=== PATIENT | male | born 1960 | race African-American/Black ===

== ENCOUNTER 2025-03-20 10:44 | Emergency (ER) | payer MEDICAID ==
[~2025-03-20] VITALS: Ht 182.9 cm; Wt 151.0 kg
--- NOTE | 2025-03-20 11:52 | DVH ---
Clinical History: R/O DVT Comparison: None Technique: Duplex Doppler evaluation of the deep venous system of the left lower extremity from the common femo ral vein to the popliteal vein including color Doppler and spectral/pulsed waveform analysis was perf ormed. Findings: The common femoral vein demonstrates appropriate compressibility and waveform variability . There is compressibility/patency of the great saphenous vein at the proximal thigh . The femoral vein demonstrates appropriate compressibility and waveform variability . The deep femoral vein demonstrates appropriate compressibility and waveform variability . The popliteal vein demonstrates appropriate compressibility and waveform variability . There is normal compressibility at the tibioperoneal trunk. Impression: No left deep venous thrombosis. If clinical concern/symptoms persist or worsen, short-interval follow-up study is suggested.
--- NOTE | 2025-03-20 12:09 | DVH ---
CLINICAL INDICATION: PAIN TO LEFT HIP LEFT LEG TECHNIQUE: 1 radiographic views of the pelvis and 2 views of the left hip were obtained. Comparison: None FINDINGS/IMPRESSION: There is no evidence of acute fracture or dislocation. The visualized joint space is well maintained. The alignment is anatomical. There is no radiopaque foreign body.
[2025-03-20 12:42] VITALS: BP 171/98; PULSE 89; RESP 20; TEMP 98.7; O2SAT 96
--- NOTE | 2025-03-20 13:10 | ED.PDOC ---
Musculoskeletal HPI Comments 64-year-old male w/ hx of HTN, ran out of his HCTZ three days ago presents with a chief complaint of left lower extremity swelling. Reports his primary care doctor referred him to the emergency department for an emergency ultrasound rule out DVT. No other complaint of concern. Denies CP/SOB. Chief Complaint: Lower Extremity Time Seen by MD: 11:22 Primary Care Provider: DOMENICA Reviewed Notes: Nurses Notes, Medications, Allergies Allergies: Coded Allergies: NO KNOWN ALLERGIES (Unverified , 10/19/15) Information Source: Patient Mode of Arrival: Ambulatory Past Medical History PAST MEDICAL HISTORY: Denies Surgical History: Denies all surgeries Family History Family History: Unknown Social History Smoker: Non-Smoker Lives In: Home All Other Systems: Reviewed and Negative (per hpi) Physical Exam General Appearance: No Apparent Distress, Normal HEENT: Normal ENT Inspection, Pharynx Normal, TMs Normal Neck: Full Range of Motion, Non-Tender, Normal, Normal Inspection Respiratory: Chest Non-Tender, Lungs Clear, No Accessory Muscle Use, No R espiratory Distress, Normal Breath Sounds Cardiovascular: No Murmur, No Gallop, Regular Rate/Rhythm Breast Exam: Deferred Gastrointestinal: No Organomegaly, Non Tender, No Pulsatile Mass, Normal Bowel Sounds, Soft Genitalia: Deferred Pelvic: Deferred Rectal: Deferred Extremities: No calf tenderness, Normal capillary refill, Normal inspection, Normal range of motion, Non-tender, No pedal edema Musculoskeletal : Apperance: Normal Neurologic: Alert, direct support staff member II-XII nml as Tested, No Motor Deficits, Normal Affect, Normal Mood, No Sensory Deficits Cerebellar Function: Normal Reflexes: Normal Skin: Dry, Normal Color, Warm Lymphatic: No Adenopathy Was a procedure done? Was a procedure done?: No Differential Diagnosis EXT Differential Diagnosis: CHF, Deep Vein Thrombosis, Other X-Ray, Labs, Meds, VS Vital Signs Date Time Temp Pulse Resp B/P (MAP) Pulse Ox O2 Delivery O2 Flow Rate FiO2 03/20/25 12:42 89 20 96 Room Air 03/20/25 12:42 98.7 89 20 171/98 (122) 96 98.7 03/20/25 11:08 98.7 89 20 171/98 (122) 96 98.7 PATIENT: [facility] JRACCT: [id number]: [id number] : 1960 LOC: ER ROOM / BED: / AGE / SEX: 64 / M ADM STATUS: REG ER SERVICE [id number] ORDERING PHYSICIAN: ADRIA JEFFREY NP PROCEDURE(s): LLDVT - LT Lower DVT REASON: R/O DVT ORDER NUMBER(s): [id number], ACCESSION NUMBER(s): [id number] Clinical History: R/O DVT Comparison: None Technique: Duplex Doppler evaluation of the deep venous system of the left lower extremity from the common femoral vein to the popliteal vein including color Doppler and spectral/pulsed waveform analysis was performed. Findings: The common femoral vein demonstrates appropriate compressibility and waveform variability . There is compressibility/patency of the great saphenous vein at the proximal thigh . The femoral vein demonstrates appropriate compressibility and waveform variability . The deep femoral vein demonstrates appropriate compressibility and waveform variability . The popliteal vein demonstrates appropriate compressibility and waveform variability . There is normal compressibility at the tibioperoneal trunk. Impression: No left deep venous thrombosis. If clinical concern/symptoms persist or worsen, short-interval follow-up study is suggested. ATED BY: JENNA CASIANO MD DICTATED DATE/TIME: 03/20/25 115 SIGNED BY: JENNA CASIANO MD SIGNED DATE/TIME: 03/20/25 115 CC: X-Ray, Labs, Meds, VS Comment The patient presents with signs and symptoms concerning for deep venous thrombosis. The differential diagnosis includes but is not limited to: DVT, thrombophlebitis, trauma, venous stasis, peripheral edema Patients work up: Negative for lower extremity ultrasound DVT. The patient denies having any shortness of breath, dyspnea on exertion. Additionally, the patient was not hypoxic, therefore no indication for further chest imaging to evaluate for PE. The patient was overall stable while in the ED. They had normal oxygenation on room air and did not require any supplemental oxygen. Heart rate has remained stable while in the ED. Nontoxic appearing. No lymphangitic spread visible. No fluid pockets or fluctuance concerning for abscess. Low concern for cellulitis or osteomyelitis. Focal and unilateral nature not consistent with heart failure. Advised to restart medication and f/u with PCP. On reevaluation, patient had symptomatic improvement. Patient is stable for discharge at this time. External notes reviewed. Test results and diagnostic imaging interpreted. All diagnostic findings, discharge care, education and instructions provided Follow-up with PCP in 2 to 3 days Patient verbalized understanding and agreed to treatment plan Vital signs stable, afebrile, no acute distress noted Patient ambulatory with strong steady gait Advised to return precautions for any new or worsening symptoms, return to ER immediately for re-evaluation Patient is aware that the purpose of this visit was for an acute medical emergency requiring emergent stabilization. Chronic conditions, including malignancies have not been ruled out. Patient is instructed to follow up with PCP as directed and discharge instructions for continued care and workup. If unable to arrange follow-up, patient is to return to the emergency department for reassessment. Patient (parent or legal guardian if applicable) was given verbal and written discharge instructions and acknowledges understanding. Time of 1ST Reevaluation: 13:09 Reevaluation 1ST: Improved Patient Education/Counseling: Diagnosis, Treatment Family Education/Counseling: Diagnosis, Treatment Departure 1 Departure Time of Disposition: 13:10 Impression: Primary Impression: Peripheral edema Disposition: 01 HOME / SELF CARE / HOMELESS Condition: Fair Discharged With: Self Critical Care Note Critical Care Time?: No Stability Stability form required: No Heart Score Heart Score: Heart Score Response (Comments) Value History N/A 0 EKG N/A 0 Age N/A 0 Risk Factors N/A 0 Troponin N/A 0 Total 0 ADRIA JEFFREY NP Mar 20, 2025 13:10
== END 2025-03-20 13:13 | disposition home or self-care (01) ==
LOC: ER 10:44
DX: R60.9 Edema, unspecified (principal)
CPT/HCPCS: 73502; 93971